=== PATIENT | male | born 1975 | race Caucasian/White ===

== ENCOUNTER 2022-02-10 21:03 | Emergency (ER) | payer SELFPAY ==
[2022-02-10 22:01] LABS: ANION GAP 17.4 mEq/L (7-13); CHLORIDE,CL 97 mmol/L (98-107); SODIUM,NA 137 mmol/L (136-145)
[2022-02-10 23:14] LABS: AMPHETAMINES,URINE NEGATIVE (NEGATIVE); BARBITURATES,URINE NEGATIVE (NEGATIVE); BENZODIAZEPINE,URINE NEGATIVE (NEGATIVE); MDMA (ECSTASY), URINE NEGATIVE (NEGATIVE); METHADONE,URINE NEGATIVE (NEGATIVE); METHAMPHETAMINES,URINE NEGATIVE (NEGATIVE); OPIATES,URINE NEGATIVE (NEGATIVE); OXYCODONE,URINE NEGATIVE (NEGATIVE); PHENCYCLIDINE,URINE NEGATIVE (NEGATIVE); TCA,URINE NEGATIVE (NEGATIVE)
== END 2022-02-11 00:20 | disposition home or self-care (01) ==
LOC: DL.ED 21:03
DX: R07.89 Other chest pain (principal); F41.9 Anxiety disorder, unspecified; E80.7 Disorder of bilirubin metabolism, unspecified; Z91.030 Bee allergy status
CPT/HCPCS: 36415; 71045; 80053; 80305-QW; 80307; 81003; 82947; 83605; 83880; 84484; 85025; 86140; 93005; 93010; 99284; 99285-25

== ENCOUNTER 2022-09-01 11:57 | Emergency (ER) | payer MEDICAID, OTHER | END 2022-09-01 12:51 | disposition home or self-care (01) | LOC: DL.ED 11:57 | DX: S06.0X0A Concussion without loss of consciousness, initial encounter (principal); Z91.030 Bee allergy status; W22.8XXA Striking against or struck by other objects, initial encounter | CPT/HCPCS: 99283 ==